=== PATIENT | male | born 1960 | race Caucasian/White ===

== ENCOUNTER 2023-12-24 09:12 | Outpatient (OUT) | payer OTHER, SELFPAY ==
--- NOTE | 2023-12-24 09:19 | CA_ITS ---
Patient Name: LEO KIM MR#: [id number] : 1960 Exam Date: 12/24/2023 Ordering Doctor: DR Trey Morse M.D. ECHOCARDIOGRAM REPORT PROCEDURE: CA ECHO DOPPLER COMPLETE INDICATIONS: Thoracic aortic aneurysm COMPARISON: None. DESCRIPTION: COMPLETE ECHOCARDIOGRAM Real-time transthoracic echocardiography with 2D, M-mode, spectral and color flow Doppler performed. QUALITY: Technical quality was good. LEFT VENTRICLE: Normal chamber size. Thickened septal wall. Normal systolic function. LV EF: Normal left ventricular ejection fraction, (60%). DIASTOLIC: Diastolic function is indeterminate. ATRIAL SEPTUM: Visually appears intact. LEFT ATRIUM: Mild dilatation. RIGHT ATRIUM: Mild dilatation. RIGHT VENTRICLE: Normal chamber size. Normal right ventricular systolic function. TRICUSPID VALVE: Normal mobility and thickness. No stenosis with trivial regurgitation. MITRAL VALVE: Normal mobility and thickness. No evidence of mitral valve stenosis. There is no mitral annular calcification. Trivial mitral regurgitation. AORTIC VALVE: Normal trileaflet appearance. No visible sclerosis. Normal leaflet mobility. No evidence of aortic valve stenosis. Trivial aortic regurgitation. AORTIC ROOT: Mildly to moderately dilated measuring 4.0 cm. Ascending aorta is moderately dilated (4.2 cm). Aortic arch is normal in size. PULMONIC VALVE: Normal thickness and mobility. No stenosis. Trivial regurgitation. PERICARDIUM: No evidence of pericardial effusion. IVC: IVC is dilated (2.6 cm) with no collapse. PLEURA: CONCLUSION: 1. The left ventricle is normal in size and exhibits normal systolic function. LVEF is estimated at 60%. 2. Normal right ventricular size and systolic function. 3. Mild biatrial dilatation. 4. No significant valvular dysfunction. 5. Mildly to moderately dilated aortic root measuring 4.0 cm. Moderately dilated ascending aorta measuring 4.2 cm. Adult Echocardiography Procedure Report Left Ventricle LVEDD (3.7 - 5.6 cm): 4.56 cm LVESD (2.2 - 4.0 cm): 2.62 cm LVIVS thickness (0.6 - 1.2 cm): 1.26 cm LVPW thickness (0.5 - 1.0 cm): 1.02 cm e': 0.08 m/s E - e': 7.19 LVOT Max Gradient: 3.00 mm[Hg] LVOT Area (cm2): 0.87 m/s Peak Velocity (LVOT): 0.87 m/s Mean Velocity (LVOT): 0.55 m/s LVOT Diameter 2.64 cm Left Atrium LA Volume Index (2D A2C): 37.29 ml/m2 Left Atrium Systolic Dimension: 4.02 cm Mitral Valve MV E to A Ratio: 0.86 Mitral Valve A-Wave Peak Velocity: 0.69 m/s Mitral Valve E-Wave Peak Velocity: 0.60 m/s Right Ventricle Aorta AO Root Diam: 4.05 cm Ascending Ao Diam: 3.82 cm Aortic Valve AoV Area ([place]): 5.82 cm2, 5.82 cm2 AoV Area (VTI): 5.35 cm2, 5.35 cm2 Peak Velocity(Antegrade Flow): 0.81 m/s Peak Gradient(Antegrade Flow): 2.64 mm[Hg] Mean Velocity(Antegrade Flow): 0.59 m/s Mean Gradient(Antegrade Flow): 1.57 mm[Hg] Velocity Time Integral: 19.05 cm Tricuspid Valve Pulmonic Valve Mean Gradient: 1.80 mm[Hg] Mean Velocity: 0.61 m/s Peak Velocity: 1.04 m/s, 0.99 m/s Peak Gradient: 3.95 mm[Hg], 4.32 mm[Hg] Right Atrium Right Atrium Systolic Pressure: 113.96 ml, 113.96 ml Dictated by: Arnaud Stephenson M.D. on 12/24/2023 at 21:13 Approved by: Arnaud Stephenson M.D. on 12/24/2023 at 21:17
[2023-12-24 10:59] LABS: Alanine Aminotransferase 27 U/L (16-63); Albumin Globulin Ratio 1.1; Albumin Level 3.6 g/dL (3.4-5.0); Alkaline Phosphatase 39 U/L (46-116); Aspartate Amino Transferase 12 U/L (15-37); Bilirubin Direct 0.3 mg/dL (0.0-0.2); Bilirubin Total 0.8 mg/dL (0.2-1.0); Chol HDL Ratio 2.1; Cholesterol 111 mg/dL (<=200); Globulin 3.3 g/dL; HDL Cholesterol 53 mg/dL (40-60); LDL Cholesterol Calculated 44.6 mg/dL; Total Protein 6.9 g/dL (6.4-8.2); Triglycerides 67 mg/dL (<=150); VLDL CHOLESTEROL 13.4 mg/dL
== END 2023-12-24 09:13 | disposition home or self-care (01) ==
LOC: CARD 09:16
PROVIDERS: PCP Family Medicine; Visit Provider Internal Medicine Interventional Cardiology
DX: I77.810 Thoracic aortic ectasia (principal); E78.5 Hyperlipidemia, unspecified
CPT/HCPCS: 36415; 80061; 80076; 93306

== ENCOUNTER 2024-02-19 08:38 | Outpatient (OUT) | payer OTHER, SELFPAY ==
--- NOTE | 2024-02-19 08:42 | CT_ITS ---
[address] [address] Patient Name: LEO KIM MRN: [id number] date: 1960 Sex: M Assigned Patient Location: CT Current Patient Location: CT Accession/Order Number: [id number] Exam Date: 02/19/2024 09:20 Report Date: 02/19/2024 10:05 At the request of: JUNE SOTELO Procedure: CT angio chest EXAMINATION: CT angio chest, CT angio abdomen pelvis HISTORY: Thoracic Aortic Aneurysm COMPARISON: CT abdomen pelvis 12/27/2021, CT chest 08/17/2020 TECHNIQUE: After obtaining the patient's consent, CT images of the chest, abdomen and pelvis were obtained with non-ionic intravenous contrast material. Axial, Coronal, and Sagittal images. Multi-planar reformatted/3-D images were created to optimize visualization of vascular anatomy. Dose reduction techniques were achieved by using automated exposure control and/or adjustment of mA and/or kV according to patient size and/or use of iterative reconstruction technique. FINDINGS: PULM VASC: No pulmonary embolism or abnormal opacity. LUNGS: No visible pulmonary disease. PLEURA: No mass, effusion, or pneumothorax. ERNST: No mass or adenopathy. MEDIASTINUM: No mass or adenopathy. CARDIAC: No enlargement, pericardial effusion, or pericardial thickening. CHEST WALL: No mass or axillary adenopathy. AORTA/VASCULAR: Mild dilation of the ascending thoracic aorta, 4.1 cm in diameter. Unremarkable abdominal aorta except for moderate atherosclerotic disease of distal aorta. CELIAC ARTERY: Normal celiac vessels. SMA: Normal mesenteric vessels. RENAL ARTERIES: Normal renal vessels. LIVER: Fatty infiltration. No enlargement, atrophy, abnormal density, or significant focal lesion. BILIARY: No visible dilatation or calcification. PANCREAS: No lesion, fluid collection, ductal dilatation, or atrophy. SPLEEN: No enlargement or focal lesion. ADRENALS: No mass or enlargement. KIDNEYS: No mass, obstruction, or calcification. BOWEL/MESENTERY: No visible mass, obstruction, or bowel wall thickening. Normal appendix. RETROPERITONEUM: No mass or adenopathy. LYMPHNODES: No pelvic lymphadenopathy. BLADDER: No stones or focal wall thickening. PELVIC ORGANS: No appreciable mass. Appropriate for age. ABDOMINAL WALL: No mass or hernia. BONES: Moderate degenerative disc disease of lower cervical spine and lumbar spine. No acute bone amount. OTHER: Negative. CT/CT angio chest IMPRESSION: 1. Mild aneurysmal dilation of the ascending thoracic aorta, 4.1 cm. Atherosclerotic disease of distal abdominal aorta; no aneurysm of the abdominal aorta. 2. Fatty infiltration of liver. 3. Degenerative disc disease of lower cervical and lumbar spine. Electronically authenticated by: GADIEL DAVIS Date: 02/19/2024 10:05
--- NOTE | 2024-02-19 08:42 | CT_ITS ---
[address] [address] Patient Name: LEO KIM MRN: [id number] date: 1960 Sex: M Assigned Patient Location: CT Current Patient Location: CT Accession/Order Number: [id number] Exam Date: 02/19/2024 09:20 Report Date: 02/19/2024 10:05 At the request of: JUNE SOTELO Procedure: CT angio abdomen pelvis EXAMINATION: CT angio chest, CT angio abdomen pelvis HISTORY: Thoracic Aortic Aneurysm COMPARISON: CT abdomen pelvis 12/27/2021, CT chest 08/17/2020 TECHNIQUE: After obtaining the patient's consent, CT images of the chest, abdomen and pelvis were obtained with non-ionic intravenous contrast material. Axial, Coronal, and Sagittal images. Multi-planar reformatted/3-D images were created to optimize visualization of vascular anatomy. Dose reduction techniques were achieved by using automated exposure control and/or adjustment of mA and/or kV according to patient size and/or use of iterative reconstruction technique. FINDINGS: PULM VASC: No pulmonary embolism or abnormal opacity. LUNGS: No visible pulmonary disease. PLEURA: No mass, effusion, or pneumothorax. ERNST: No mass or adenopathy. MEDIASTINUM: No mass or adenopathy. CARDIAC: No enlargement, pericardial effusion, or pericardial thickening. CHEST WALL: No mass or axillary adenopathy. AORTA/VASCULAR: Mild dilation of the ascending thoracic aorta, 4.1 cm in diameter. Unremarkable abdominal aorta except for moderate atherosclerotic disease of distal aorta. CELIAC ARTERY: Normal celiac vessels. SMA: Normal mesenteric vessels. RENAL ARTERIES: Normal renal vessels. LIVER: Fatty infiltration. No enlargement, atrophy, abnormal density, or significant focal lesion. BILIARY: No visible dilatation or calcification. PANCREAS: No lesion, fluid collection, ductal dilatation, or atrophy. SPLEEN: No enlargement or focal lesion. ADRENALS: No mass or enlargement. KIDNEYS: No mass, obstruction, or calcification. BOWEL/MESENTERY: No visible mass, obstruction, or bowel wall thickening. Normal appendix. RETROPERITONEUM: No mass or adenopathy. LYMPHNODES: No pelvic lymphadenopathy. BLADDER: No stones or focal wall thickening. PELVIC ORGANS: No appreciable mass. Appropriate for age. ABDOMINAL WALL: No mass or hernia. BONES: Moderate degenerative disc disease of lower cervical spine and lumbar spine. No acute bone amount. OTHER: Negative. CT/CT angio abdomen pelvis IMPRESSION: 1. Mild aneurysmal dilation of the ascending thoracic aorta, 4.1 cm. Atherosclerotic disease of distal abdominal aorta; no aneurysm of the abdominal aorta. 2. Fatty infiltration of liver. 3. Degenerative disc disease of lower cervical and lumbar spine. Electronically authenticated by: GADIEL DAVIS Date: 02/19/2024 10:05
[2024-02-19 09:07] LABS: Estimated GFR (African America >60 (>=60 mL/min/1.73m^2); Estimated GFR (Non-African Ame >60 (>=60 mL/min/1.73m^2)
== END 2024-02-19 08:39 | disposition home or self-care (01) ==
LOC: CT 08:38
PROVIDERS: PCP Family Medicine; Visit Provider Internal Medicine Interventional Cardiology
DX: I71.20 Thoracic aortic aneurysm, without rupture, unspecified (principal); M50.30 Other cervical disc degeneration, unspecified cervical region; M51.369 Other intervertebral disc degeneration, lumbar region without mention of lumbar back pain or lower extremity pain
CPT/HCPCS: 36415; 71275; 74174; 82565; Q9967

== ENCOUNTER 2024-08-23 10:58 | Outpatient (OUT) | payer OTHER, MEDICARE, SELFPAY ==
--- OUTSIDE RECORDS SUMMARY | 2024-08-23 11:07 | XMS_ITS | Clinical Summary ---
Author Organization [facility] Address [address] [place] [address] Care Team Providers Care Jack Winder Name Role Phone Thomas Brown MD Primary Care Provider [phone] Allergies No known active allergies Medications lisinopril 10 mg tablet Take 10 mg by mouth in the morning. Active allopurinol (Zyloprim) 100 mg tablet 1 (one) time each day at the same time. Active sertraline (Zoloft) 50 mg tablet Take 150 mg by mouth in the morning. 2 Active carvedilol (Coreg) 3.125 mg tabletIndications: Essential hypertension TAKE 1 TABLET (3.125 MG) BY MOUTH WITH BREAKFAST AND WITH EVENING MEAL. 180 tablet 3 3 Active atorvastatin (Lipitor) 40 mg tabletIndications: Hyperlipidemia, unspecified hyperlipidemia type TAKE 1 TABLET BY MOUTH EVERY DAY IN THE MORNING 90 tablet 3 4 Active Active Problems Problem Noted Date Diagnosed Date Acute idiopathic gout of right ankle 03/05/2023 Cerebral ataxia 03/05/2023 Chronic fatigue 03/05/2023 Degenerative lumbar spinal stenosis 03/05/2023 Facet arthropathy, lumbar 03/05/2023 Herniated intervertebral disc of lumbar spine Hypercholesteremia 03/05/2023 Impaired fasting glucose 03/05/2023 Left sided sciatica 03/05/2023 Loss of taste 03/05/2023 Nystagmus 03/05/2023 Primary insomnia 03/05/2023 Pulmonary embolism 03/05/2023 Sleep apnea in adult 03/05/2023 Snoring 03/05/2023 Thoracic aortic aneurysm without rupture 024 Thrombocytopenia 03/05/2023 Hypertension 10/01/2022 01/15/2023 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 Abnormality of gait 10/10/2016 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 Family History Medical History Relation Name Comments Hypertension Mother Relation Name Status Comments Mother Social History Tobacco Use Types Packs/Day Years Used Date Smoking Tobacco: Former Cigarettes Smokeless Tobacco: Former Tobacco Cessation:Counseling Given: Not Answered Alcohol Use Standard Drinks/Week Comments Yes 0 (1 standard drink = 0.6 oz pur e alcohol) moderate [place] Safety & Environment Answer Date Rec orded Fear of Current or Ex-Partner Not on file Emotionally Abused Not on file 04/02/2023 Physically Abused Not on file 04/02/2023 Sexually Abused Not on file 04/02/2023 Physically or Sexually Abused Not on file Sex and Gender Information Value Date Recorded Sex Assigned at Not on file Legal Sex Male 2:45 PM EDT Gender Identity Not on file Sexual Orientation Not on file Last Filed Vital Signs Vital Sign Reading Time Taken Comments Blood Pressure 128/86 01/27/2024 9:40 AM EST Pulse 80 01/27/2024 9:40 AM EST Temperature - - Respiratory Rate - - Oxygen Saturation 96% 01/27/2024 9:40 AM EST Inhaled Oxygen Concentration - - Weight 98.9 kg (218 lb) 01/27/2024 9:40 AM EST Height 177.8 cm (5' 10 ) 01/27/2024 9:40 AM EST Body Mass Index 31.28 01/27/2024 9:40 AM EST Plan of Treatment Health Maintenance Due Date Last Done Comments CT Colonography 1960 FIT-DNA 1960 FIT 1960 FOBT 1960 Sigmoidoscopy 1960 Depression Screening 1973 Adult Tetanus 1983 Zoster Vaccines (1 of 2) 2011 COVID-19 Vaccine ( season) 2023 11/19/2021, 12/12/2020, 04/20/2020 Influenza Vaccine (#1) 2024 , 12/10/2017, 12/09/2016, Additional history exists Colonoscopy 06/24/2025 06/25/2015 Colorectal Cancer Screening 06/24/2025 HIB Vaccines Aged Out No longer eligi ble based on patient's age to complete this topic HPV Vaccines Aged Out No longer eligi ble based on patient's age to complete this topic IPV Vaccines Aged Out No longer eligi ble based on patient's age to complete this topic Meningococcal B Vaccine Aged Out No l onger eligible based on patient's age to complete this topic Meningococcal Vaccine Aged Out No todd oswald eligible based on patient's age to complete this topic Pneumococcal Vaccine: Pediatrics (0 to 5 Years) and At-Risk Patients (6 to 64 Years) Aged Out No longer eligible based on patient's age to complete this topic Rotavirus Vaccines Aged Out No longer eligible based on patient's age to complete this topic Insurance AET[employer] Care Teams Jack Winder Relationship Specialty Start Date End Date Thomas Brown MD [address] [place] [address] PCP - General 11/19/21
--- OUTSIDE RECORDS SUMMARY | 2024-08-23 11:07 | XMS_ITS | Clinical Summary ---
Author Organization [facility] tem Address [facility] [id number] [address] [place] [address] Care Team Providers Care Regional Driver Name Role Phone Thomas Brown MD Primary Care Provider [phone] Allergies No known active allergies Medications lisinopriL (PRINIVIL,ZESTR IL) 10 mg tablet Take 1 tablet (10 mg total) by mouth in the morning. Active allopurinoL (ZYLOPRIM) 100 mg tablet Take 1 tablet (100 mg total) by mouth in the morning. Active sertraline (ZOLOFT) 25 mg tablet Take 1 tablet (25 mg total) by mouth in the morning. Active HYDROcodone-lisa taminophen (NORCO) 5-325 mg per tablet Take 1 tablet by mouth every 6 (six) hours as needed for pain. Max Daily Amount: 4 tablets Active Active Problems No known active problems Family History Medical History Relation Name Comments Other Father SCA 6 Mental illness Mother Relation Name Status Comments Father Mother Alive Social History Tobacco Use Types Packs/Day Years Used Date Smoking Tobacco: Former Cigarettes Smokeless Tobacco: Never Tobacco Cessation:Counseling Given: Not Answered Alcohol Use Standard Drinks/Week Comments Yes 0 (1 standard drink = 0.6 oz pur e alcohol) 2 beers daily Sex and Gender Information Value Date Recorded Sex Assigned at Not on file Legal Sex Male 9:22 AM EDT Gender Identity Not on file Sexual Orientation Not on file Last Filed Vital Signs Vital Sign Reading Time Taken Comments Blood Pressure 122/90 12/11/2021 4:08 PM EDT Pulse 73 12/11/2021 4:08 PM EDT Temperature 36.8 C (98.2 F) 12/11/2021 3:11 PM EDT Respiratory Rate 11 12/11/2021 4:08 PM EDT Oxygen Saturation 97% 12/11/2021 4:08 PM EDT Inhaled Oxygen Concentration - - Weight 90.7 kg (200 lb) 12/11/2021 11:53 AM EDT Height 177.8 cm (5' 10 ) 12/11/2021 11:53 AM EDT Body Mass Index 28.7 12/11/2021 11:53 AM EDT Plan of Treatment Health Maintenance Due Date Last Done Comments Depression Screening 1973 Tobacco Screening 1973 DTaP,Tdap and Td Vaccines (1 - Tdap) 1980 Zoster (Shingles) Vaccine (1 of 2) 2011 Adult BMI Screening 12/11/2022 12/11/2021 COVID-19 Vaccine (3 - 2023-2 5 season) 2023 12/12/2020, 04/20/2020 Influenza Vaccine 10/10/2024 11/26/2020, , 12/09/2016, Additional history exists Medical Devices Not on file Insurance AET[employer] Care Teams Regional Driver Relationship Specialty Start Date End Date Thomas Brown MD [address] [facility] PCP - General Family Medicine 12/04/21
[2024-08-23 13:09] LABS: Hematocrit 42.7 % (42.0-54.0); Hemoglobin 14.9 g/dL (14.0-18.0); Immature Granulocytes Abs Auto 0.02 10^3/uL (0.00-0.03); Immature Granulocytes Pct Auto 0.3 % (0.0-0.5); Lymphocytes Absolute Auto 1.2 10^3/uL (1.2-3.8); Mean Corpuscular HGB Conc 34.9 g/dL (29.9-35.2); Mean Corpuscular Hemoglobin 31.0 pg (25.9-34.0); Mean Corpuscular Volume 89.0 fL (80.0-94.0); Platelet Count 130 10^3/uL (150-450); Red Blood Count 4.80 10^6/uL (4.70-6.10); White Blood Count 7.6 10^3/uL (4.0-11.0)
[2024-08-23 13:24] LABS: Anion Gap 11.9; Blood Urea Nitrogen 21.0 mg/dL (7.0-18.0); Calcium 9.2 mg/dL (8.5-10.1); Carbon Dioxide 28.5 mmol/L (21.0-32.0); Chloride 103 mmol/L (98-107); Estimated GFR (African America >60 (>=60 mL/min/1.73m^2); Estimated GFR (Non-African Ame >60 (>=60 mL/min/1.73m^2); Glucose 100 mg/dL (74-106); Potassium 4.4 mmol/L (3.5-5.1); Sodium 139 mmol/L (136-145); Uric Acid 6.0 mg/dL (3.5-7.2)
--- OUTSIDE RECORDS SUMMARY | 2024-08-24 08:50 | XMS_ITS | Encounter Summary ---
Author Organization [facility] Address [address] [place] [address] Care Team Providers Care Personal Care Aide Name Role Phone Andrés Oneil DO Primary Care Provider [phone] Thomas Brown MD Primary Care Provider [phone] Source Comments In the event this information is protected by the Federal Confidentiality of Alcohol and Drug AbusePatient Records regulations: The Federal rules restrict any use of the information to criminally investigate or prosecute any alcohol or drug abuse patient.[facility] Encounter Details Date Type Department Care Team (Late st Contact Info) Description 10/14/2013 Patient Msg Medical Records [address] [place] [address] Provider, [facility] Results Social History Tobacco Use Types Packs/Day Years Used Date Smoking Tobacco: Every Day Cigarettes Smokeless Tobacco: Current Chew Alcohol Use Standard Drinks/Week Comments Yes 0 (1 standard drink = 0.6 oz pur e alcohol) Sex and Gender Information Value Date Recorded Sex Assigned at Male 11/06/2022 10:24 AM EDT Legal Sex Male 10:16 AM EST Gender Identity Male 11/06/2022 10:24 AM EDT Sexual Orientation Straight 11/06/2022 10 :24 AM EDT documented as of this encounter Functional Status * Are you deaf or do you have serious difficulty hearing? Answer Date of Assessment Author No 09/30/2013 10:45 AM Allan Wyman RN * Are you blind or do you have serious difficulty seeing, even when wearing glasses? Answer Date of Assessment Author No 09/30/2013 10:45 AM Allan Wyman RN * Do you have serious difficulty walking or climbing stairs? Answer Date of Assessment Author Yes 09/30/2013 10:45 AM Allan Wyman RN * Do you have difficulty dressing or bathing? Answer Date of Assessment Author No 09/30/2013 10:45 AM Allan Wyman RN * Because of a physical, mental, or emotional condition, do you have difficulty doing errands alone such as visiting a doctor's office or shopping? Answer Date of Assessment Author No 09/30/2013 10:45 AM Allan Wyman RN documented as of this encounter Mental Status * Because of a physical, mental, or emotional condition, do you have serious difficulty concentrating, remembering, or making decisions? Answer Entry Date Author No 09/30/2013 10:45 AM Allan Wyman RN documented in this encounter Plan of Treatment Not on file documented as of this encounter Visit Diagnoses Not on filedocumented in this encounter Care Teams Personal Care Aide Relationship Specialty Start Date End Date Andrés Oneil DO [address] [place] [address] PCP - General Family Medicine 07/21/11 11/16/16 Thomas Brown MD [address] [place] [address] PCP - General Family Medicine 11/17/16 documented as of this encounter
--- OUTSIDE RECORDS SUMMARY | 2024-08-24 08:50 | XMS_ITS | Encounter Summary ---
Author Organization [facility] Address [address] [place] [address] Care Team Providers Care Mapper Name Role Phone Thomas Brown MD Primary Care Provider [phone] Source Comments In the event this information is protected by the Federal Confidentiality of Alcohol and Drug AbusePatient Records regulations: The Federal rules restrict any use of the information to criminally investigate or prosecute any alcohol or drug abuse patient.[facility] Encounter Details Date Type Department Care Team (Late st Contact Info) Description 01/21/2017 Get Medical Advice [facility] [address] [id number] [facility] [address] [place] [address] Upcoming Appointment Question Social History Tobacco Use Types Packs/Day Years Used Date Smoking Tobacco: Former Cigarettes Smokeless Tobacco: Current Chew Alcohol Use [...] of Assessment Author No 09/30/2013 10:45 AM EDT Allan Moreira RN * Are you blind or do you have serious difficulty seeing, even when wearing glasses? Answer Date of Assessment Author No 09/30/2013 10:45 AM EDT Allan Moreira RN * Do you have serious difficulty walking or climbing stairs? Answer Date of Assessment Author Yes 09/30/2013 10:45 AM EDT Allan Moreira RN * Do you have difficulty dressing or bathing? Answer Date of Assessment Author No 09/30/2013 10:45 AM VAHIDT Allan Moreira RN * Because of a physical, mental, [...] on filedocumented in this encounter Care Teams Mapper Relationship Specialty Start Date End Date Thomas Brown MD [address] [place] [address] PCP - General Family Medicine 11/17/16 documented as of this encounter
--- OUTSIDE RECORDS SUMMARY | 2024-08-24 08:50 | XMS_ITS | Encounter Summary ---
Author Organization [facility] Address [address] [place] [address] Care Team Providers Care Inclusion Manager Name Role Phone Andrés Oneil DO Primary Care Provider [phone] Thomas Brown MD Primary Care Provider [phone] Source Comments In the event this information is protected by the Federal Confidentiality of Alcohol and Drug AbusePatient Records regulations: The Federal rules restrict any use of the information to criminally investigate or prosecute any alcohol or drug abuse patient.[facility] Encounter Details Date Type Department Care Team (Late st Contact Info) Description 10/29/2016 Patient Msg Medical Records [address] [place] [address] Provider, [facility]cf Results Social History Tobacco Use [...] on filedocumented in this encounter Care Teams Inclusion Manager Relationship Specialty Start Date End Date Andrés Oneil DO [address] [place] [address] PCP - General Family Medicine 07/21/11 11/16/16 Thomas Brown MD [address] [place] [address] PCP - General Family Medicine 11/17/16 documented as of this encounter
--- OUTSIDE RECORDS SUMMARY | 2024-08-24 08:50 | XMS_ITS | Encounter Summary ---
Author Organization [facility] Address [address] [place] [address] Care Team Providers Care Multiple Spindle Router Operator Name Role Phone [place] Andrés Diaz DO Primary Care Provider [phone] Thomas Brown MD Primary Care Provider [phone] Source Comments In the event this information is protected by the Federal Confidentiality of Alcohol and Drug AbusePatient Records regulations: The Federal rules restrict any use of the information to criminally investigate or prosecute any alcohol or drug abuse patient.[facility] Encounter Details Date Type Department Care Team (Late st Contact Info) Description 10/10/2016 Patient Msg Neurology [address] [place] [address] Allan Moreira, COCO [address] [place] [address] LUMBAR PUNCTURE (LP) Instructions Social History Tobacco Use Types Packs/Day Years [...] on filedocumented in this encounter Care Teams Multiple Spindle Router Operator Relationship Specialty Start Date End Date Andrés Oneil DO [address] [place] [address] PCP - General Family Medicine 07/21/11 11/16/16 Thomas Brown MD [address] [place] [id number] PCP - General Family Medicine 11/17/16 documented as of this encounter
--- OUTSIDE RECORDS SUMMARY | 2024-08-24 08:50 | XMS_ITS | Clinical Summary ---
Author Organization [facility] tem Address [facility] [id number] [address] [place] [address] Care Team Providers Care General Accounting Manager Name Role Phone Thomas Brown MD Primary Care Provider [phone] Allergies No known active allergies Medications lisinopriL [...] Not on file Insurance AET[employer] Care Teams General Accounting Manager Relationship Specialty Start Date End Date Thomas Brown MD [address] [facility] PCP - General Family Medicine 12/04/21
--- OUTSIDE RECORDS SUMMARY | 2024-08-24 08:50 | XMS_ITS | Encounter Summary ---
Author Organization [facility] Address [address] [place] [address] Care Team Providers Care Furniture Fabricator Name Role Phone FranciscoAndrés arora Emily CUELLO Primary Care Provider [phone] Thomas Brown MD Primary Care Provider [phone]- [phone] Source Comments In the event this information is protected by the Federal Confidentiality of Alcohol and Drug AbusePatient Records regulations: The Federal rules restrict any use of the information to criminally investigate or prosecute any alcohol or drug abuse patient.[facility] Encounter Details Date Type Department Care Team (Late st Contact Info) Description 07/18/2016 Patient Msg Neurology [address] [place] [address] Rich Babcock MD [address] [place] [address] RE: Request an Appointment Social History Tobacco Use Types Packs/Day Years [...] 10:45 AM VAHIDT Allan Moreira RN * Are you blind or do you have serious difficulty seeing, even when wearing glasses? Answer Date of Assessment Author No 09/30/2013 10:45 AM EDT Allan Moreira RN * Do you have serious difficulty walking or climbing stairs? Answer Date of Assessment Author Yes 09/30/2013 10:45 AM VAHIDT Allan Moreira RN * Do you have difficulty dressing or bathing? Answer Date of Assessment Author No 09/30/2013 10:45 AM VAHIDT Allan Moreira RN * Because of a physical, mental, or emotional condition, do you have difficulty doing errands alone such as visiting a doctor's office or shopping? Answer Date of Assessment Author No 09/30/2013 10:45 AM EDT Allan Moreira RN documented as of this encounter Mental Status * Because of a physical, mental, or emotional condition, do you have serious difficulty concentrating, remembering, or making decisions? Answer Entry Date Author No 09/30/2013 10:45 AM Allan Wyman RN documented in this encounter Plan of Treatment Not on file documented as of this encounter Visit Diagnoses Not on filedocumented in this encounter Care Teams Furniture Fabricator Relationship Specialty Start Date End Date Andrés Oneil DO [address] [place] [address] PCP - General Family Medicine 07/21/11 11/16/16 Thomas Brown MD [address] [place] [address] [address] [place] [address] PCP - General Family Medicine 11/17/16 documented as of this encounter
--- OUTSIDE RECORDS SUMMARY | 2024-08-24 08:50 | XMS_ITS | Encounter Summary ---
Author Organization [facility] Address [address] [place] [address] Care Team Providers Care Video Engineer Name Role Phone Thomas Brown MD Primary Care Provider [phone]- [phone] Source Comments In the event this information is protected by the Federal Confidentiality of Alcohol and Drug AbusePatient Records regulations: The Federal rules restrict any use of the information to criminally investigate or prosecute any alcohol or drug abuse patient.[facility] Encounter Details Date Type Department Care Team (Late st Contact Info) Description 12/16/2016 Get Medical Advice [facility] [address] [id number] [facility] [address] [place] [address] Visit Follow Up Question Social History Tobacco Use Types Packs/Day [...] on filedocumented in this encounter Care Teams Video Engineer Relationship Specialty Start Date End Date Thomas Brown MD [address] [place] [address] PCP - General Family Medicine 11/17/16 documented as of this encounter
--- OUTSIDE RECORDS SUMMARY | 2024-08-24 08:50 | XMS_ITS | Encounter Summary ---
Author Organization [facility] Address [address] [place] [address] Care Team Providers Care Methods Examiner Name Role Phone FranciscoAndrés arora Emily CUELLO Primary Care Provider [phone] Thomas Brown MD Primary Care Provider [phone]- [phone] Source Comments In the event this information is protected by the Federal Confidentiality of Alcohol and Drug AbusePatient Records regulations: The Federal rules restrict any use of the information to criminally investigate or prosecute any alcohol or drug abuse patient.[facility] Encounter Details Date Type Department Care Team (Late st Contact Info) Description 07/30/2016 Patient Msg Neurology [address] [place] [address] Rich Babcock MD [address] [place] [address] RE: Request an Appointment Social [...] on filedocumented in this encounter Care Teams Methods Examiner Relationship Specialty Start Date End Date Andrés Oneil DO [address] [place] [address] PCP - General Family Medicine 07/21/11 11/16/16 Thomas Brown MD [address] [place] [address] [address] [place] [address] PCP - General Family Medicine 11/17/16 documented as of this encounter
--- OUTSIDE RECORDS SUMMARY | 2024-08-24 08:51 | XMS_ITS | Encounter Summary ---
Author Organization [facility] Address [address] [place] [address] Care Team Providers Care Instructor Extension Work Name Role Phone Thomas Brown MD Primary Care Provider [phone]- [phone] Source Comments In the event this information is protected by the Federal Confidentiality of Alcohol and Drug AbusePatient Records regulations: The Federal rules restrict any use of the information to criminally investigate or prosecute any alcohol or drug abuse patient.[facility] Encounter Details Date Type Department Care Team (Late st Contact Info) Description 01/20/2017 Get Medical Advice [facility] [address] [phone] [facility] [address] [place] [address] RE: Test Result Question Social History Tobacco Use Types Packs/Day [...] on filedocumented in this encounter Care Teams Instructor Extension Work Relationship Specialty Start Date End Date Thomas Brown MD [address] [place] [address] PCP - General Family Medicine 11/17/16 documented as of this encounter
--- OUTSIDE RECORDS SUMMARY | 2024-08-24 08:51 | XMS_ITS | Clinical Summary ---
Author Organization [facility] Address [address] [place] [address] Care Team Providers Care Paper Mill Superintendent Name Role Phone Thomas Brown MD Primary Care Provider [phone]- [phone] Allergies No known active allergies Medications lisinopril-hydro chlorothiazide 20-25 mg per tablet Take 1 tablet by mouth once daily. Active allopurinol (ZYLOPRIM) 100 mg tablet Take 100 mg by mouth once daily. Active baclofen (LIORESAL) 10 mg tablet Take 10 mg by mouth as needed. Active clonazePAM (KLONOPIN) 1 mg tabletIndication s:Spinocerebella r ataxia type 6 (HCC) Take 1 tablet by mouth twice daily for 90 days. 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[facility].edu/. Last address used for calculation Not on file 01/18/2020 Sex and Gender Information Value Date Recorded Sex Assigned at Male 11/06/2022 10:24 AM EDT Legal Sex Male 10:16 AM EST Gender Identity Male 11/06/2022 10:24 AM EDT Sexual Orientation Straight 11/06/2022 10 :24 AM EDT Last Filed Vital Signs Vital Sign Reading Time Taken Comments Blood Pressure 123/82 11/30/2017 11:28 AM EDT Pulse 102 11/30/2017 11:28 AM EDT Temperature 36 C (96.8 F) 08/19/2011 8:00 AM EDT Respiratory Rate 18 11/30/2017 11:28 AM EDT Oxygen Saturation 98% 01/28/2017 1:10 PM EST Inhaled Oxygen Concentration - - Weight 96.2 kg (212 lb 1.6 oz) 11/30/2017 11:28 AM EDT Height 175.3 cm (5' 9 ) 11/30/2017 11:28 AM EDT Body Mass Index 31.32 11/30/2017 11:28 AM EDT Plan of Treatment Health Maintenance Due Date Last Done Comments Anxiety Screening 1979 Depression Screening 1979 HIV Screening 1979 Hepatitis C Screening 1979 DTaP,Tdap,Td Vaccine (1 - Tdap) [address] Colonography 2006 Cologuard (FIT-DNA) 2006 Colonoscopy 2006 Colorectal Cancer Screening 2006 Fecal Occult Blood 2006 Prostate Cancer Screening Discussion 2006 Sigmoidoscopy 2006 Pneumococcal Vaccine: 50+ (1 of 1 - PCV) 2011 Shingrix Vaccine (1 of 2) 2011 Diabetes Screening 10/18/2019 10/17/2016, 08/12/2011 Covid-19 Vaccine (1 - 2023- season) 2023 Influenza Vaccine (#1) 2024 7, 02/13/2014, 01/03/2013 RSV Vaccine (1 - 1-dose 75+ series) 2036 Medical Devices Implanted Type Area Service Delivery Analyst Device Identifier Shelf Expiration Date Model / Serial / Lot Graft Bn Mtrgrft Canc David Dwl - [id number] Implanted:Qty: 1 on 08/18/2011 at [facility] Implant LIFENET 07/23/2016 [id number] / / Description:Charityigraft -anjana christianson dowellID: [id number] Plate 12mm Ti 1 Lvl Rflx Hb Bn - [id number] Implanted:Qty: 1 on 08/18/2011 at [facility] Plate N/A: Neck [employer] [id number] / / Screw Bn 4mm 14mm Rflx Hb Ti - [id number] Implanted:Qty: 4 on 08/18/2011 at [facility] Screw Right: Neck [employer] [id number] / / Description:variable angle s crew Procedures Procedure Name Priority Date/Time Associated Diagnosis Comments GLUCOSE RANDOM BLD Routine 10/17/2016 2: 24 PM EDT Cerebellar ataxia (HCC) from Last 3 Months or Most Recently Relevant to Health Maintenance Results * GLUCOSE RANDOM BLD (10/17/2016 2:24 PM EDT) [facility] Glucose 93 74 - 99 mg/dL 10/17/2016 4:45 PM EDT [facility] Comment: The [place] Diabetes Association (ADA) provides guidance for cutoff values for fasting glucose and random glucose. The ADA defines fasting as no caloric intake for at least 8 hours. Fasting plasma glucose results between 100 to 125 mg/dL indicate increased risk for diabetes (prediabetes). Fasting plasma glucose results greater than or equal to 126 mg/dL meet the criteria for diagnosis of diabetes. In the absence of unequivocal hyperglycemia, results should be confirmed by repeat testing. In a patient with classic symptoms of hyperglycemia or hyperglycemic crisis, random plasma glucose results greater than or equal to 200 mg/dL meet the criteria for diagnosis of diabetes. Reference: Standards of Medical Care in Diabetes 2016, [place] [employer] Association. Diabetes Care. 2016.39(Suppl 1). Blood specimen (specimen) BLOOD SPECIMEN / Unknown 10/17/2016 2:24 PM EDT 10/17/2016 2:26 PM EDT us Rich Babcock MD LABORATORY Final Result [facility] [address] [place] [address] from Last 3 Months or Most Recently Relevant to Health Maintenance Insurance [employer] Care Teams Paper Mill Superintendent Relationship Specialty Start Date End Date Thomas Brown MD [address] [address] PCP - General Family Medicine 11/17/16
--- OUTSIDE RECORDS SUMMARY | 2024-08-24 08:51 | XMS_ITS | Encounter Summary ---
Author Organization [facility] Address [address] [place] [address] Care Team Providers Care Accountant Property Name Role Phone Thomas Brown MD Primary Care Provider +1- [phone] Source Comments In the event this information is protected by the Federal Confidentiality of Alcohol and Drug AbusePatient Records regulations: The Federal rules restrict any use of the information to criminally investigate or prosecute any alcohol or drug abuse patient.[facility] Encounter Details Date Type Department Care Team (Late st Contact Info) Description 08/17/2017 Patient Msg Neurology [address] [place] [address] Rich Babcock MD [address] [place] [address] RE: Request an Appointment Social [...] on filedocumented in this encounter Care Teams Accountant Property Relationship Specialty Start Date End Date Thomas Brown MD [address] [place] [address] PCP - General Family Medicine 11/17/16 documented as of this encounter
--- OUTSIDE RECORDS SUMMARY | 2024-08-24 08:51 | XMS_ITS | Clinical Summary ---
Author Organization [facility] Address [address] [place] [address] Care Team Providers Care Pleater Name Role Phone Thomas Brown MD Primary Care Provider [phone] Allergies No known active allergies Medications lisinopril [...] complete this topic Insurance [employer] Care Teams Pleater Relationship Specialty Start Date End Date Thomas Brown MD [address] [place] [address] PCP - General 11/19/21
== END 2024-08-23 10:59 | disposition home or self-care (01) ==
PROVIDERS: PCP Family Medicine; Visit Provider Physician Assistant
DX: Z12.5 Encounter for screening for malignant neoplasm of prostate (principal); I10 Essential (primary) hypertension; E78.00 Pure hypercholesterolemia, unspecified; D69.6 Thrombocytopenia, unspecified; R73.01 Impaired fasting glucose; M1A.0710 Idiopathic chronic gout, right ankle and foot, without tophus (tophi)
CPT/HCPCS: 36415; 80048; 83036; 84550; 85025; G0103